=== PATIENT | female | born 1980 | race Caucasian/White ===

== ENCOUNTER 2020-03-25 16:24 | Emergency (ER) | payer OTHER, SELFPAY ==
--- NOTE | ~2020-03-25 | US_ITS ---
EXAMINATION: US OB <= 14 weeks fetus DATE: 03/25/2020 18:12 INDICATION: Vaginal bleeding during first trimester TECHNIQUE: Real-time pelvic transabdominal and transvaginal ultrasound was performed. COMPARISON: None. FINDINGS: The uterus measures 8.5 x 4.8 x 6.8 cm. There is an intrauterine gestational sac.There is a 1.7 x 0.5 x 1.1 cm hypoechoic area adjacent to the gestational sac. A yolk sac is identified. heart motion is identified measuring 126 beats per minute (bpm) by M-mode Doppler. The crown r ump length measures 8 mm , which correlates with an estimated gestational age of 6 weeks and 5 day(s) (+/-) 4 day(s). The right ovary measures 3.0 x 2.1 x 2.1 cm. The left ovary measures 3.5 x 2.2 x 2.0 cm. There is nor mal vascular flow in the ovaries. There is no free fluid in the pelvis. IMPRESSION: 1. Live intrauterine with an estimated gestational age of 6 weeks and 5 day(s) (+/-) 4 day( s) and an estimated delivery date of 11/13/2020. 2. Small subchorionic hemorrhage. Reviewed, dictated and finalized at location A. IMPRESSION: 1. Live intrauterine with an estimated gestational age of 6 weeks and 5 day(s) (+/-) 4 day(s) and an estimated delivery date of 11/13/2020. 2. Small subchorionic hemorrhage.
[2020-03-25 16:50] VITALS: BP 132/81; PULSE 99; RESP 16; TEMP 37.1; O2SAT 100
[2020-03-25 17:06] LABS: Basophils Percent Auto 0.3 % (0.2-1.2); Eosinophils Absolute Auto 0.2 K/mm3 (0-0.3); Eosinophils Percent Auto 2.3 % (0-4.4); Hematocrit 42.7 % (37.0-47.0); Hemoglobin 14.7 g/dL (12.0-15.0); Immature Granulocyte Absolute 0.04 K/mm3 (0.00-0.031); Immature Granulocyte Percent A 0.5 % (0-0.5); Lymphocytes Absolute Auto 1.46 K/mm3 (0.9-3.2); Lymphocytes Percent Auto 16.5 % (18.3-44.2); Mean Corpuscular HGB Conc 34.4 g/dl (32-36); Mean Corpuscular Hemoglobin 29.8 pg (26-34); Mean Corpuscular Volume 86.4 fl (80-100); Mean Platelet Volume 11.7 fl (7.4-10.4); Monocytes Absolute Auto 0.6 K/mm3 (0.1-0.6); Monocytes Percent Auto 6.3 % (2.6-8.5); Neutrophils Absolute Auto 6.6 K/mm3 (1.3-6.7); Neutrophils Percent Auto 74.1 % (45.5-73.1); Platelet Count Result 187 k/mm3 (150-375); Red Blood Count 4.94 M/mm3 (4.2-5.4); Red Cell Distribution Width 13.4 % (11.5-14.5); White Blood Count 8.9 K/mm3 (4.5-10.0)
--- NOTE | 2020-03-25 17:22 | PC.NURSE ---
this RN was unable to obtain heart tones with monitor
--- NOTE | 2020-03-25 17:29 | ED.PREGNANCY ---
HPI - General Chief complaint: Vaginal Bleeding Stated complaint: with cramping and bleeding Time Seen by Provider: 03/25/20 17:11 Source: patient Mode of arrival: ambulatory Limitations: no limitations History of Present Illness HPI Narrative: This patient is a 39 year old female who presents for evaluation of vaginal bleeding during . PAtient states this is her first and her last menstrual cycle was 02/09/20. She reports she has had intermittent vaginal spotting over the past week. Today she developed bright red vaginal bleeding and lower abdominal cramping. She reports her bleeding has decreased now. She denies lightheadedness or dizziness. She schedule to see OB on Friday for possible ultrasound. Her OB is Heather Londono MD Complaint: vaginal bleeding Related Data Allergies Allergy/AdvReac Type Severity Reaction Status Date / Time No Known Allergies Allergy Unknown Verified 03/25/20 17:11 Review of Systems Review of Systems: All systems reviewed & are unremarkable except as noted in HPI and below Genitourinary: Genitourinary: Reports abnormal vaginal bleeding and Reports pelvic pain PMFSH Past Medical History Medical History (Updated 03/25/20 @ 18:39 by Yoselyn Salinas MD) Patient denies medical problems Family History Family History (Updated 04/28/14 @ 07:13 by DOCTOR UNKNOWN) Father Family history of elevated blood lipids Other Carcinoma of colon Family history of malignant neoplasm Hypertension Social History Social History Smoking status: Never smoker Alcohol intake: current Comments surgical history of VISUAL STYLIST shunt Exam Narrative: Exam Narrative: GENERAL: Well-appearing, well-nourished, and in no acute distress. HEAD: Normocephalic, atraumatic EYES: PERRLA and EOMI, conjunctiva clear without discharge THROAT:Mucous membranes moist, Oropharynx normal without erythema, exudate, peritonsillar swelling or fluctuance NECK: Supple, RESPIRATORY: No respiratory distress, Airway patent, Respirations non-labored, Clear to auscultation without rales, rhonchi or wheeze HEART: Regular rate and rhythm. No murmur heard. Normal peripheral pulses. ABDOMEN: Soft, nontender, nondistended, normal active bowel sounds. No masses. No rebound or guarding, No organomegaly. EXTREMITIES: No edema, normal strength with full range of motion. SKIN: Warm, dry, normal color without rash NEURO: Alert and oriented x3. CN 2-12 grossly intact. No focal deficits. PSYCH: Normal mood and affect. : Speculum Exam - Vagina: No vaginal bleeding Speculum Exam - Cervix: Cervical os closed Course Reevaluation(s) Reevaluation #1: I have discussed with patient Ultrasound results. she has an appointment with OB on Friday. She understands she will need to be on pelvic rest Date: 03/25/20 Time: 18:37 Vital Signs Vital signs: Vital Signs Temperature 98.7 F 03/25/20 16:50 Pulse Rate 99 03/25/20 16:50 Respiratory Rate 16 03/25/20 16:50 Blood Pressure 132/81 03/25/20 16:50 Pulse Oximetry 100 03/25/20 16:50 Temperature 98.7 F 03/25/20 16:50 Pulse Rate 87 03/25/20 17:45 Respiratory Rate 16 03/25/20 16:50 Blood Pressure 117/75 03/25/20 17:45 Pulse Oximetry 100 03/25/20 16:50 MDM - OB/Uterine Contractions Lab Data Attestation: I reviewed the patient's lab results. Result diagrams: 03/25/20 16:58 Labs: Lab Results 03/25/20 03/25/20 03/25/20 Range/Units 16:58 16:59 16:59 WBC 8.9 (4.5-10.0) K/mm3 RBC 4.94 (4.2-5.4) M/mm3 Hgb 14.7 (12.0-15.0) g/dL Hct 42.7 (37.0-47.0) % MCV 86.4 (80-100) fl MCH 29.8 (26-34) pg MCHC 34.4 (32-36) g/dl RDW 13.4 (11.5-14.5) % Plt Count 187 (150-375) k/mm3 MPV 11.7 H (7.4-10.4) fl Immature Gran % (Auto) 0.5 (0-0.5) % Neut % (Auto) 74.1 H (45.5-73.1) % Lymph % (Auto) 16.5 L (18.3-44.2) % [place] % (Auto) 6.3 (2.6-8.5)
[2020-03-25 17:43] VITALS: BP 110/82; PULSE 100
[2020-03-25 17:44] VITALS: BP 116/77; PULSE 83
[2020-03-25 17:45] VITALS: BP 117/75; PULSE 87
== END 2020-03-25 18:49 | disposition home or self-care (01) ==
PROVIDERS: Emergency Medicine; Emergency Provider General Practice
DX: O46.8X1 Other antepartum hemorrhage, first trimester (principal); Z3A.01 Less than 8 weeks gestation of pregnancy
CPT/HCPCS: 36415; 76801; 84702; 85025; 85461; 99284

== ENCOUNTER 2020-04-17 07:52 | Outpatient (RCR) | payer OTHER, SELFPAY | END 2020-07-13 23:59 | disposition home or self-care (01) | LOC: ANHLAB 07:52 | PROVIDERS: Visit Provider Obstetrics & Gynecology Gynecology | DX: O26.851 Spotting complicating pregnancy, first trimester (principal); Z3A.00 Weeks of gestation of pregnancy not specified | CPT/HCPCS: 36415; 84702; 85461 ==

== ENCOUNTER 2020-04-17 10:12 | Outpatient (CLI) | payer OTHER, SELFPAY ==
--- NOTE | ~2020-04-17 | US_ITS ---
EXAMINATION: US OB <= 14 weeks fetus EXAM DATE: 04/17/2020 11:00 INDICATION: , vaginal bleeding. 1st trimester. TECHNIQUE: Pelvic obstetrical transabdominal sonogram was performed by a technologist. There are mu ltiple grayscale and Doppler images available for interpretation. Comparison is made to prior examina tion from 03/25/2020. FINDINGS: Uterus measures 11.9 x 4.8 x 6.8 cm. There is intrauterine gestation sac. pole with heart rate confirmed at 165 beats per minute. The 3.3 mm crown-rump length corresponds to estimated gestational age by ultrasound of 10 weeks 2 days, estimated date of confinement 11/11/2020. Yolk sac is identified. There is thin small hypoechoic subchorionic region measuring 4 mm in thickness by a bout 2 cm in diameter, probably small subchorionic hemorrhage. The ovaries are unremarkable. IMPRESSION: Live intrauterine gestation, probable small subchorionic hemorrhage. Reviewed, dictated and finalized at location B. IMPRESSION: Live intrauterine gestation, probable small subchorionic hemorrhage .
== END 2020-04-17 10:13 | disposition home or self-care (01) ==
LOC: ANHIMG 10:20
PROVIDERS: Visit Provider Nurse Practitioner
DX: O26.851 Spotting complicating pregnancy, first trimester (principal); O20.0 Threatened abortion; Z3A.10 10 weeks gestation of pregnancy
CPT/HCPCS: 76801

== ENCOUNTER → 2020-05-16 08:26 | Outpatient (CLI) | payer OTHER, SELFPAY ==
--- NOTE | ~2020-05-16 | US_ITS ---
US OB limited 05/16/2020 08:49 Indication: Follow-up subchorionic hemorrhage Procedure: High-resolution ultrasound of the breasts Comparison: 04/17/2020 Findings: There is a single living intrauterine in variable presentation. heart rate is 143 BPM. Placenta is posterior without previa. There is no evidence for subchorionic hemorrhage on the current examination. Amniotic fluid is subjectively normal. Impression: 1: Single living intrauterine in variable presentation. 2: Interval resolution of subchorionic hemorrhage. Reviewed, dictated and finalized at location B. Impression: 1: Single living intrauterine in variable presentation. 2: Interval resolution of subchorionic hemorrhage.
== END ==
PROVIDERS: Visit Provider Nurse Practitioner
DX: O36.8910 Maternal care for other specified fetal problems, first trimester, not applicable or unspecified (principal); Z3A.00 Weeks of gestation of pregnancy not specified
CPT/HCPCS: 76815

== ENCOUNTER 2020-11-08 17:18 | Inpatient (IN) | payer OTHER, SELFPAY ==
--- NOTE | 2020-10-23 14:13 | PC.NURSE ---
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
[2020-11-08] VITALS (12 sets, daily range): BP systolic 105–136; BP diastolic 67–87; PULSE 86–97; TEMP 36.4; BMI 29.3
--- NOTE | 2020-11-08 18:15 | LDADM ---
This patient, Roseann Holguin, was admitted to Labor/Delivery/Recovery 108 on 11/08/20 at 17:18. Plans for labor, pain management and were discussed with patient. Patient/family oriented to hospital policies and general routines including ID bracelet, bed and alarms, visiting hours, pain management, procedures, bathroom and other care routines, personal items, smoking policy, room service/diet and guest tray routines, security routines, call light, and visiting hours. Patient/Family are encouraged to report perceived risks to care and to ask questions if they do not understand what they are told or what they should do. See OBIX for further documentation.
[2020-11-08 18:18] LABS: Basophils Percent Auto 0.1 % (0.2-1.2); Eosinophils Absolute Auto 0.1 K/mm3 (0-0.3); Eosinophils Percent Auto 1.3 % (0-4.4); Hematocrit 36.1 % (37.0-47.0); Hemoglobin 12.3 g/dL (12.0-15.0); Immature Granulocyte Absolute 0.07 K/mm3 (0.00-0.031); Immature Granulocyte Percent A 0.8 % (0-0.5); Lymphocytes Percent Auto 18.3 % (18.3-44.2); Mean Corpuscular HGB Conc 34.1 g/dl (32-36); Mean Corpuscular Hemoglobin 29.9 pg (26-34); Mean Corpuscular Volume 87.6 fl (80-100); Mean Platelet Volume 11.6 fl (7.4-10.4); Monocytes Absolute Auto 0.8 K/mm3 (0.1-0.6); Monocytes Percent Auto 8.9 % (2.6-8.5); Neutrophils Absolute Auto 6.2 K/mm3 (1.3-6.7); Neutrophils Percent Auto 70.6 % (45.5-73.1); Platelet Count Result 153 k/mm3 (150-375); Red Blood Count 4.12 M/mm3 (4.2-5.4); Red Cell Distribution Width 14.2 % (11.5-14.5); White Blood Count 8.7 K/mm3 (4.5-10.0)
[2020-11-08] MEDS: DINOPROSTONE 10 MG VAG INSERT VAGINAL (18:23)
[2020-11-09] VITALS (138 sets, daily range): BP systolic 93–145; BP diastolic 46–113; PULSE 78–132; TEMP 36.6–37.9; O2SAT 92–100
[2020-11-09] MEDS: LACTATED RINGERS 1,000 ML 125 ML IV CONT ×4 (06:58→19:00)
[2020-11-09 07:04] LABS: Glucose Point of Care 86 (65-105)
[2020-11-09] MEDS: OXYTOCIN 30 UNITS/NS 500 ML 30 UNITS/500 ML BAG IV CONT (07:12)
--- NOTE | 2020-11-09 07:57 | WPDOBADMIT ---
Obstetrics - Admit Note Admission Note: record reviewed. No pertinent additions to the history and/or any subsequent changes in the physical findings that are not consistent with the expected course of the were found. Additions to the history and/or subsequent changes in the physical findings follow. None. Here for MIL. Cervadil last pm. Now 1-/-2 AROM with mec fluid. FHTs reactive
[2020-11-09 07:59] LABS: Rapid Plasma Reagin Non-Reactive (NonReactive)
--- NOTE | 2020-11-09 09:02 | WPDANESEPP ---
Anes - Eval Pre Procedure Procedure: Labor Epidural Date/Time: 11/09/20 09:02 Pre Op Diagnosis: Induction of Labor Patient Data Age: 40 Gender: F Height: 1.63 m Weight: 77.5 kg Last Vital Signs Temp 36.9 C 11/09/20 08:40 Pulse 86 11/09/20 08:17 BP 121/93 H 11/09/20 08:17 Allergies Allergy/AdvReac Type Severity Reaction Status Date / Time No Known Allergies Allergy Unknown Verified 11/08/20 17:53 Home Medications Medication Instructions Recorded Confirmed Type cetirizine-pseudoephedrine 1 tablet PO Q12H PRN #12 tablet 07/15/19 11/08/20 Rx [Zyrtec-D] codeine-guaifenesin [Virtussin AC] 5 ml PO Q6H PRN #120 ml 07/15/19 11/08/20 Rx polymyxin B sulf-trimethoprim 1 drop EACH EYE Q3H #10 ml 07/15/19 11/08/20 Rx [Polytrim] aspirin 81 mg PO HS 11/08/20 11/08/20 History levothyroxine 25 mcg PO Q48H 11/08/20 11/08/20 History levothyroxine 50 mcg PO Q48H 11/08/20 11/08/20 History Laboratory Tests 11/08/20 11/08/20 11/08/20 18:07 18:07 18:07 WBC 8.7 K/mm3 K/mm3 (4.5-10.0) RBC 4.12 M/mm3 L M/mm3 (4.2-5.4) Hgb 12.3 g/dL g/dL (12.0-15.0) Hct 36.1 % L % (37.0-47.0) MCV 87.6 fl fl (80-100) MCH 29.9 pg pg (26-34) MCHC 34.1 g/dl g/dl (32-36) RDW 14.2 % % (11.5-14.5) Plt Count 153 k/mm3 k/mm3 (150-375) MPV 11.6 fl H fl (7.4-10.4) Immature Gran % (Auto) 0.8 % H % (0-0.5) Neut % (Auto) 70.6 % % (45.5-73.1) Lymph % (Auto) 18.3 % % (18.3-44.2) [place] % (Auto) 8.9 % H % (2.6-8.5) Eos % (Auto) 1.3 % % (0-4.4) Baso % (Auto) 0.1 % L % (0.2-1.2) Lymph # (Auto) 1.60 K/mm3 K/mm3 (0.9-3.2) [place] # (Auto) 0.8 K/mm3 H K/mm3 (0.1-0.6) Eos # (Auto) 0.1 K/mm3 K/mm3 (0-0.3) Baso # (Auto) 0.0 K/mm3 K/mm3 (0.0-0.1) Abs Immat Gran (auto) 0.07 K/mm3 H K/mm3 (0.00-0.031) Absolute Neuts (auto) 6.2 K/mm3 K/mm3 (1.3-6.7) Absolute Nucleated RBC 0.0 K/mm3 K/mm3 (0.0-0.012) Nucleated RBC % 0.0 % % (0.0-0.2) POC Capillary Glucose RPR Non-reactive (NonReactive) Blood Type A Positive Antibody Screen Negative 11/09/20 06:58 WBC RBC Hgb Hct MCV MCH MCHC RDW Plt Count MPV Immature Gran % (Auto) Neut % (Auto) Lymph % (Auto) [place] % (Auto) Eos % (Auto) Baso % (Auto) Lymph # (Auto) [place] # (Auto) Eos # (Auto) Baso # (Auto) Abs Immat Gran (auto) Absolute Neuts (auto) Absolute Nucleated RBC Nucleated RBC % POC Capillary Glucose 86 mg/dl mg/dl (65-105) RPR Blood Type Antibody Screen Patient hx anesthesia problems: none Family hx anesthesia problems: none PMFSH Past Medical History Medical History (Updated 11/09/20 @ 09:06 by Kerry Mae CRNA) Anxiety Gestational diabetes Migraine Patient denies medical problems Surgical History Surgical History (Updated 11/09/20 @ 09:06 by Kerry Mae CRNA) POWER SUPPLY ENGINEER (ventriculoperitoneal) shunt status Family History Family History Father Family history of elevated blood lipids Pancreatitis Grandparent Hypertension Carcinoma of colon Cancer Renal failure Pacemaker Heart disease Diabetes mellitus Social History Social History Smoking status: Never smoker Alcohol intake: current Substance use: never Spiritual care concerns: No Exam Day of Procedure 11/09/20 09:02 Patient weight: normal Heart: regular rate and rhythm Lungs: normal air movement Airway: Mallampati scale class II Neurological: alert and oriented Other fi
[2020-11-09 11:06] LABS: Glucose Point of Care 87 (65-105)
[2020-11-09 13:56] LABS: Glucose Point of Care 68 (65-105)
[2020-11-09 18:18] LABS: Glucose Point of Care 57 (65-105)
[2020-11-09 19:21] LABS: Glucose Point of Care 89 (65-105)
[2020-11-09 22:33] LABS: Glucose Point of Care 78 (65-105)
[2020-11-09] MEDS: AMPICILLIN 2 GM/NS 100 ML 2 GM/100 ML BAG IVPB (23:12)
[2020-11-10] VITALS (208 sets, daily range): BP systolic 97–153; BP diastolic 47–99; PULSE 92–135; RESP 13–16; TEMP 36.3–37.7; O2SAT 94–100
[2020-11-10] MEDS: SODIUM CHLORIDE 0.9% IV 300 ML 600 ML I-UTERINE (00:59)
[2020-11-10 02:37] LABS: Glucose Point of Care 78 (65-105)
[2020-11-10] MEDS: AMPICILLIN 1 GM/NS 50 ML 1 GM/50 ML BAG IVPB ×2 (05:04→09:07)
[2020-11-10 06:28] LABS: Glucose Point of Care 80 (65-105)
[2020-11-10] MEDS: LACTATED RINGERS 1,000 ML 125 ML IV CONT (08:07)
[2020-11-10 09:28] LABS: Glucose Point of Care 79 (65-105)
[2020-11-10 11:26] LABS: Estimated CRCL calculation 83 ml/min; Estimated Glomerular Filt Rate > 60
--- NOTE | 2020-11-10 12:36 | PM.IMHP ---
H&P: HPI History of Present Illness Date/Time: 11/10/20 12:36 Chief Complaint: failure to progress Narrative: 40 yo G1 at 39 wk EGA here for MIL. Patient initially with cervadil and then AROM and Pitocin. Patient with minimal change in 12 hours and no change in 4 hours. She is 5 cm and cervix is starting to get puffy. complicated by AMA and GDMA1. Level 2 u/s and NIPT normal. Sugars have been well controlled with diet. labs: A+; RPR -; HIV-; HBSAg -; GBS-. Review of Systems Review of Systems: Narrative: not repeated day of surgery; patient states no changes in status PMFSH Past Medical History Medical History (Updated 11/10/20 @ 12:42 by Vashti Ward MD) Adult hypothyroidism Anxiety Gestational diabetes Hydrocephalus V-P shunt 1980 Migraine Urinary tract disease had bilateral urinary tract dilation as a child Surgical History Surgical History (Updated 11/09/20 @ 09:06 by Kerry Mae CRNA) STEM ROLLER (ventriculoperitoneal) shunt status Family History Family History Father Family history of elevated blood lipids Pancreatitis Grandparent Hypertension Carcinoma of colon Cancer Renal failure Pacemaker Heart disease Diabetes mellitus Social History Social History Smoking status: Never smoker Alcohol intake: current Substance use: never Spiritual care concerns: No Meds Home Medications and Allergies Home Medications Medication Instructions Recorded Confirmed Type cetirizine-pseudoephedrine 1 tablet PO Q12H PRN #12 tablet 07/15/19 11/08/20 Rx [Zyrtec-D] codeine-guaifenesin [Virtussin AC] 5 ml PO Q6H PRN #120 ml 07/15/19 11/08/20 Rx polymyxin B sulf-trimethoprim 1 drop EACH EYE Q3H #10 ml 07/15/19 11/08/20 Rx [Polytrim] aspirin 81 mg PO HS 11/08/20 11/08/20 History levothyroxine 25 mcg PO Q48H 11/08/20 11/08/20 History levothyroxine 50 mcg PO Q48H 11/08/20 11/08/20 History Allergies Allergy/AdvReac Type Severity Reaction Status Date / Time No Known Allergies Allergy Unknown Verified 11/08/20 17:53 Vital Signs Vital Signs - 24 hr 11/09/20 12:37 11/09/20 13:00 11/09/20 13:30 Temperature 98.8 F Pulse Rate 92 106 H 90 Blood Pressure 122/77 130/89 130/84 Pulse Oximetry 11/09/20 13:40 11/09/20 14:00 11/09/20 14:11 Temperature 98.7 F 98.3 F Pulse Rate 88 Blood Pressure 113/75 Pulse Oximetry 11/09/20 14:31 11/09/20 15:06 11/09/20 15:30 Temperature Pulse Rate 78 99 91 Blood Pressure 121/83 125/84 132/90 Pulse Oximetry 11/09/20 16:35 11/09/20 16:40 11/09/20 16:45 Temperature Pulse Rate 92 Blood Pressure 132/84 Pulse Oximetry 100 100 98 11/09/20 16:46 11/09/20 16:48 11/09/20 16:50 Temperature Pulse Rate 103 H 99 102 H Blood Pressure 128/91 H 135/96 H 135/113 H Pulse Oximetry 98 11/09/20 16:53 11/09/20 16:55 11/09/20 16:58 Temperature Pulse Rate 90 91 87 Blood Pressure 116/75 117/79 116/72 Pulse Oximetry 99 11/09/20 17:00 11/09/20 17:03 11/09/20 17:05 Temperature Pulse Rate 88 82 85 Blood Pressure 118/75 114/76 117/69 Pulse Oximetry 100 99 11/09/20 17:08 11/09/20 17:10 11/09/20 17:13 Temperature Pulse Rate 87 86 85 Blood Pressure 116/72 114/73 115/72 Pulse Oximetry 100 11/09/20 17:15 11/09/20 17:18 11/09/20 17:20 Temperature Pulse Rate 82 90 87 Blood Pressure 113/78 115/74 111/76 Pulse Oximetry 100 100 11/09/20 17:22 11/09/20 17:25 11/09/20 17:28 Temperature Pulse Rate 88 80 110 H Blood Pressure 119/82 117/78 99/72 L Pulse Oximetry 100 11/09/20 17:30 11/09/20 17:35 11/09/20 17:40 Temperature 98.1 F Pulse Rate 87 Blood Pressure 109/67 Pulse Oximetry 100 100 100 11/09/20 17:45 11/09/20 17:50 11/09/20 17:55 Temperature Pulse Rate 85 Blood Pressure 103/63 Pulse Oximetry 99 99 98
--- NOTE | 2020-11-10 12:43 | WPDHPUPDATE1 ---
History and Physical Update Update Date/Time: 11/10/20 12:43 History and Physical has been reviewed, including an updated exam of the patient. There are NO changes in the patient's condition. Risks, benefits, and alternatives have been discussed and questions answered. Patient agrees to proceed with procedure.
[2020-11-10 12:45] LABS: Glucose Point of Care 65 (65-105)
--- NOTE | 2020-11-10 13:30 | PM.PROC ---
Procedure Note - Detailed Date of procedure: 11/10/20 Pre-op diagnosis: Induction of Labor IUP 39 wks GDMA1 Failure to progress Post-op diagnosis: same Procedure performed: LTCS Description of procedure: The patient was taken to the operating room and under epidural anesthesia in the dorsal supine position with a leftward tilt. The patient was prepped and draped in usual sterile fashion. Once anesthesia was deemed adequate the skin tag at the right upper mons was excised using a Bovie cautery. The skin incision was made with a scalpel and carried down to the underlying layer of fascia nicked in the midline. The subcutaneous tissues were made hemostatic using Bovie cautery. The fascial incision is extended laterally using Loera scissors. The fascial edges were grasped with Ochsner is and dissected off using sharp and blunt dissection. The rectus muscles are in the midline and the peritoneum was tented and entered with Metzenbaum scissors. The peritoneal incision is extended with blunt traction. The bladder blade is placed. The lower uterine segment was incised with a transverse fashion with the scalpel. The incision is extended laterally using blunt traction. The 's head was brought up into the incision and delivered while the assistant merchandiser applied fundal pressure. The nuchal cord x1 was reduced and the remainder of the infant was delivered. The placenta is removed using manual traction and membranes were removed using a dry sponge and the uterus is cleared of all clots and debris. The uterine incision is closed using 0 Monocryl in a running locked fashion. Same suture was used to imbricate. Good hemostasis is noted. The cul-de-sac and gutters are irrigated and sectioned using the pool suctioned only without a sponge. The fascial incision was closed using 0 Vicryl in a running fashion. The subcutaneous tissues were irrigated and noted to be hemostatic. The skin is closed using 4 0 Vicryl in a subcuticular fashion. Dermaflex was placed over the incision. Sponge, instrument, and needles are correct per the OR staff. Anesthesia: epidural Surgeon: Vashti Ward MD Estimated blood loss (mL): 200 Drains: Yes (christy) Packing: No Pathology: yes (placenta; mons skin tag) Complications: No immediate complications Condition: stable Disposition: floor Findings: male 9/9 Apgars weighing 9#5oz; nuchal cord x 1; head asynclitic ; normal appearing tubes, ovaries, and uterus
--- NOTE | 2020-11-10 13:37 | P.DS_ITS ---
DS: Admitting Diagnosis Admitting Diagnosis Admitting Diagnosis: IUP 39 weeks MIL GDMA2 DS: Discharge Diagnosis Discharge Diagnosis (1) Failure to progress in labor: Code(s): O62.2 - Other uterine inertia Status: Acute (2) 39 weeks gestation of : Code(s): Z3A.39 - 39 weeks gestation of Status: Acute (3) GDM, class A1: Code(s): O24.410 - Gestational diabetes mellitus in , diet controlled Status: Acute (4) delivery delivered: Code(s): O82 - Encounter for delivery without indication Status: Acute OB - DS: Summary OB Procedures : NST and Ultrasound OB Procedures Intrapartum: low cervical, transverse OB Procedures: : None Peripartum Data Infant Delivery Method: Section Laceration Description: None complications: none Status at Discharge Functional status at discharge: independent ambulation Overall status at discharge: patient is progressing back to baseline Time Spent with Patient Time attestation: Total time spent providing and/or coordinating discharge services: DS: Data Data Completed and Pending Labs on day of discharge: Labs from last 24 hours 11/10/20 11/10/20 11/10/20 12:02 11:07 09:23 Creatinine 0.80 Estim Creat Clear Calc 83 Estimated GFR > 60 POC Capillary Glucose 65 79 11/10/20 11/10/20 11/09/20 06:13 02:29 22:21 Creatinine Estim Creat Clear Calc Estimated GFR POC Capillary Glucose 80 78 78 11/09/20 11/09/20 11/09/20 19:18 18:11 13:51 Creatinine Estim Creat Clear Calc Estimated GFR POC Capillary Glucose 89 57 L* 68 Discharge Plan Discharge Attending physician on discharge: Vashti Ward Discharging Clinician: Vashti Ward Anticipated Discharge Date/Time: 11/13/20 13:38 Patient Disposition: Home, Self-Care Activity: may shower, may drive after 2 weeks and pelvic rest Diet: regular Patient Instructions: Antibiotic Form Stand Alone Forms: General Discharge Information Follow-up/Referrals: Vashti Ward MD [Physician] - 1 Week Discharge Medications: New hydrocodone-acetaminophen 5-325 mg Tablet 1 tablet PO Q3H PRN (Reason: Moderate Pain (4-6)) Qty: 20 RF: 0 Continued polymyxin B sulf-trimethoprim [Polytrim] 10,000 unit- 1 mg/mL drops 1 drop EACH EYE Q3H Qty: 10 RF: 0 cetirizine-pseudoephedrine [Zyrtec-D] 5-120 mg tablet extended release 12 hr 1 tablet PO Q12H PRN (Reason: nasal congestion) Qty: 12 RF: 0 levothyroxine 25 mcg Tablet 25 mcg PO Q48H RF: 0 levothyroxine 50 mcg Capsule 50 mcg PO Q48H RF: 0 Discontinued codeine-guaifenesin [Virtussin AC] 10-100 mg/5 mL liquid 5 ml PO Q6H PRN (Reason: cough) Qty: 120 RF: 0 aspirin 81 mg Tablet 81 mg PO HS RF: 0 Date of admission: 11/08/20 17:18 Primary Care Provider: PHYSICIAN,MOTTLE LAY UP OPERATOR Admitting Provider: Vashti Ward Attending physician on admission: Vashti Ward Condition: Stable
[2020-11-10] MEDS: OXYTOCIN 30 UNITS/NS 500 ML 30 UNITS/500 ML BAG 125 UNITS IV CONT (14:25)
[2020-11-10] MEDS: METHYLERGONOVINE MALEATE 0.2 MG/ML VIAL IM (15:51)
--- NOTE | 2020-11-10 18:31 | OBPPTRN ---
Patient transferred to post room #285 via stretcher. Support person present. Oriented to unit, room, information board, rooming in, admission packet and security measures. Patient verbalizes understanding.
[2020-11-10] MEDS: DEXTROSE 5%/0.45% SOD CHL 1,000 ML 125 ML IV CONT (19:00)
[2020-11-10] MEDS: KETOROLAC 30 MG/ML VIAL (*BKC) IV PUSH (19:16)
[2020-11-11] MEDS: KETOROLAC 30 MG/ML VIAL (*BKC) IV PUSH (03:31)
[2020-11-11] MEDS: KCL 20 MEQ/D5/0.45% SOD CHL 1,000 ML 125 ML IV CONT (03:31)
[2020-11-11 04:30] VITALS: BP 111/74; PULSE 101; RESP 14; TEMP 38.1; O2SAT 99
[2020-11-11 05:27] LABS: Basophils Percent Auto 0.2 % (0.2-1.2); Eosinophils Absolute Auto 0.1 K/mm3 (0-0.3); Eosinophils Percent Auto 0.7 % (0-4.4); Hematocrit 29.5 % (37.0-47.0); Hemoglobin 10.1 g/dL (12.0-15.0); Immature Granulocyte Absolute 0.08 K/mm3 (0.00-0.031); Immature Granulocyte Percent A 0.7 % (0-0.5); Lymphocytes Percent Auto 9.9 % (18.3-44.2); Mean Corpuscular HGB Conc 34.2 g/dl (32-36); Mean Corpuscular Hemoglobin 30.5 pg (26-34); Mean Corpuscular Volume 89.1 fl (80-100); Monocytes Absolute Auto 0.7 K/mm3 (0.1-0.6); Monocytes Percent Auto 5.8 % (2.6-8.5); Neutrophils Percent Auto 82.7 % (45.5-73.1); Platelet Count Result 129 k/mm3 (150-375); Red Blood Count 3.31 M/mm3 (4.2-5.4); Red Cell Distribution Width 14.6 % (11.5-14.5); White Blood Count 12.1 K/mm3 (4.5-10.0)
[2020-11-11] MEDS: LEVOTHYROXINE SODIUM 50 MCG TABLET PO (06:52)
[2020-11-11 09:00] VITALS: BP 115/84; PULSE 112; RESP 18; TEMP 37.3
--- NOTE | 2020-11-11 10:19 | WPDANLDPN2 ---
Anes-Prog Note L&D Date/Time: 11/11/20 10:19 Comfortable throughout: labor and delivery Neuraxial method: epidural Epidural/Spinal procedure site: clean & non-tender Neuro status: Neuro function grossly intact. Cardiovascular status: normal Respiratory status: normal Airway patency: baseline Mental status: baseline Post-Op hydration status: normal Vital Signs: Last Vital Signs Temp 38.1 C H 11/11/20 04:30 Pulse 101 H 11/11/20 04:30 Resp 14 11/11/20 04:30 BP 111/74 11/11/20 04:30 Pulse Ox 99 11/11/20 04:30 Pain score (VAS): no complaints I/O: Intake & Output 11/10/20 11/11/20 11/11/20 23:59 07:59 15:59 Output Total 1071 475 Balance -1071 -475 Post-procedural complaints: none Patient feedback: Patient satisfied with anesthetic care.
[2020-11-11] MEDS: MULTIVIT/MIN/PREN/FOL AC/IRON TABLET 1 TAB PO (10:41)
[2020-11-11] MEDS: IBUPROFEN 600 MG TABLET PO ×3 (10:42→23:53)
[2020-11-11] MEDS: HYDROcodone/acetaminophen (*CRX) 5-325 MG TABLET 1 TAB PO ×3 (10:42→23:53)
[2020-11-11] MEDS: DOCUSATE SODIUM 100 MG CAPSULE PO ×2 (10:42→16:45)
--- NOTE | 2020-11-11 11:49 | P.PNOB_ITS ---
OB - PN: Subj Subjective Date/time seen: 11/11/20 11:49 Patient comments: no complaints and pain well controlled baby status: doing well OB - PN: Obj Data Labs CBC & Chem 7: 11/11/20 03:45 11/10/20 11:07 Labs: Laboratory Results - last 24 hr 11/10/20 11/11/20 12:02 03:45 WBC 12.1 H RBC 3.31 L Hgb 10.1 L Hct 29.5 L MCV 89.1 MCH 30.5 MCHC 34.2 RDW 14.6 H Plt Count 129 L MPV 12.0 H Immature Gran % (Auto) 0.7 H Neut % (Auto) 82.7 H Lymph % (Auto) 9.9 L [place] % (Auto) 5.8 Eos % (Auto) 0.7 Baso % (Auto) 0.2 Lymph # (Auto) 1.20 [place] # (Auto) 0.7 H Eos # (Auto) 0.1 Baso # (Auto) 0.0 Abs Immat Gran (auto) 0.08 H Absolute Neuts (auto) 10.0 H Absolute Nucleated RBC 0.0 Nucleated RBC % 0.0 POC Capillary Glucose 65 OB - PN A/P Plan day: 1 Plan: routine care Time Spent With Patient Time: Total time spent is greater than 50% in coordination of care (as docume nted) at patient's floor/unit and/or counseling patient: Exam Narrative: Exam Narrative: inc c/d/i : Bimanual exam- vagina & uterus: other (Uterus firm, nt @U)
[2020-11-11 20:10] VITALS: BP 122/77; PULSE 101; RESP 14; TEMP 36.4; O2SAT 98
[2020-11-11] MEDS: HYDROcodone/acetaminophen (*CRX) 10-325 MG TABLET 1 TAB PO (20:18)
--- NOTE | 2020-11-12 04:06 | PC.NURSE ---
Daylight Savings Time 11/12/20 0159 For Daylight Savings Time Beginning in the Spring - Clocks are moved ahead. For [facility], the time of change occurs at 0200 hrs. Time is taken from the ms sql server developer. This entry on the patient's chart recognizes the change in time reflected during documentation. Example: 2 entries for vital signs may be charted for 0200 hrs.
[2020-11-12] MEDS: HYDROcodone/acetaminophen (*CRX) 10-325 MG TABLET 1 TAB PO ×2 (08:29→12:59)
[2020-11-12] MEDS: LEVOTHYROXINE SODIUM 25 MCG TABLET PO (08:29)
[2020-11-12] MEDS: DOCUSATE SODIUM 100 MG CAPSULE PO ×2 (08:29→16:31)
[2020-11-12] MEDS: MULTIVIT/MIN/PREN/FOL AC/IRON TABLET 1 TAB PO (08:29)
[2020-11-12 08:30] VITALS: BP 120/80; PULSE 99; RESP 20; TEMP 36.3
[2020-11-12] MEDS: IBUPROFEN 600 MG TABLET PO ×2 (08:30→16:32)
[2020-11-12] MEDS: HYDROcodone/acetaminophen (*CRX) 5-325 MG TABLET 1 TAB PO ×2 (16:31→20:25)
--- NOTE | 2020-11-12 17:00 | PC.NURSE ---
Patient viewed the discharge video Mother & Baby Care, The First Two Weeks . Patient was given the opportunity and encouraged to ask questions. Patient verbalized understanding of information shared and has been given the mother/baby guide for home reference.
--- NOTE | 2020-11-12 17:31 | PM.OBPNVD ---
OB - PN: Subj Subjective Date/time seen: 11/12/20 17:31 Patient comments: no complaints and pain well controlled baby status: doing well OB - PN: Obj Data Labs CBC & Chem 7: 11/11/20 03:45 11/10/20 11:07 OB - PN A/P Assessment and Plan (1) delivery delivered: Code(s): O82 - Encounter for delivery without indication Status: Acute Plan day: 2 Plan: routine care Time Spent With Patient Time: Total time spent is greater than 50% in coordination of care (as documented) at patient's floor/unit and/or counseling patient: Exam Narrative: Exam Narrative: inc c/d/i : Bimanual exam- vagina & uterus: other (Uterus firm, nt @U)
[2020-11-12 19:34] VITALS: BP 123/85; PULSE 100; RESP 16; TEMP 36.9; O2SAT 98
[2020-11-13] MEDS: IBUPROFEN 600 MG TABLET PO (06:32)
[2020-11-13] MEDS: LEVOTHYROXINE SODIUM 50 MCG TABLET PO (06:32)
[2020-11-13] MEDS: HYDROcodone/acetaminophen (*CRX) 10-325 MG TABLET 1 TAB PO (06:33)
[2020-11-13 07:40] VITALS: BP 137/84; PULSE 108; RESP 20; TEMP 37.4; O2SAT 99
[2020-11-13] MEDS: DOCUSATE SODIUM 100 MG CAPSULE PO (08:32)
[2020-11-13] MEDS: MULTIVIT/MIN/PREN/FOL AC/IRON TABLET 1 TAB PO (08:32)
--- NOTE | 2020-11-13 08:36 | PM.OBPNVD ---
OB - PN: Subj Subjective Date/time seen: 11/13/20 08:36 Patient comments: no complaints and pain well controlled baby status: doing well OB - PN: Obj Data Labs CBC & Chem 7: 11/11/20 03:45 11/10/20 11:07 OB - PN A/P Plan day: 3 Plan: routine care, discharge home and other (unsure control) Time Spent With Patient Time: Total time spent is greater than 50% in coordination of care (as documented) at patient's floor/unit and/or counseling patient: Exam Narrative: Exam Narrative: inc c/d/i : Bimanual exam- vagina & uterus: other (Uterus firm, nt @U)
[2020-11-14 10:34] VITALS: BP 132/87; PULSE 102; RESP 18; TEMP 37.3; O2SAT 99
== END 2020-11-13 11:50 | disposition home or self-care (01) | DRG 786 ==
LOC: ANHLDR 11-10 13:39 → ANHOB2 11-10 16:52
PROVIDERS: Admitting Provider Obstetrics & Gynecology Gynecology; Visit Provider Obstetrics & Gynecology Gynecology
PROC: (CPT 59514; principal; 2020-11-10 13:00)
DX: O24.410 Gestational diabetes mellitus in pregnancy, diet controlled (principal); O41.1230 Chorioamnionitis, third trimester, not applicable or unspecified; Z37.0 Single live birth; Z3A.39 39 weeks gestation of pregnancy; E03.9 Hypothyroidism, unspecified; O99.344 Other mental disorders complicating childbirth; F41.9 Anxiety disorder, unspecified; O62.0 Primary inadequate contractions; O77.0 Labor and delivery complicated by meconium in amniotic fluid
CPT/HCPCS: 36415; 82565; 82948; 85025; 86592; 86850; 86900; 86901; 88304; 88305; 88307; A9270; J0131; J0290; J1580; J1885; J2210; J2274; J2590; J2795; J3480; J7030; J7120

== ENCOUNTER 2020-11-17 10:41 | Outpatient (RCR) | payer OTHER, SELFPAY ==
--- NOTE | 2020-11-17 12:15 | PC.NURSE ---
IN 09 OUT 1040 HISTORY: Pt. delivered at [facility] at 40 weeks. had complications after delivery. Mother had complications after delivery. Infant is now 7 days old. appears to be well cared for. has been seen by ICP as scheduled. Infant last seen by ICP at 1 week. Mother reports: Difficulties latching with first feeding. Mother was given a nipple shield, infant make good efforts to latch at times and others was sleepy and made no effort. Mother began supplementing within a few feedings. Mother would attempt to breast each feeding, then supplement and pump. Mother is pumping regularly with minimal amount of 1-3 mls per session. Mother is using a double electric stimulation pump. Infant is taking 2-4 oz per feeding of formula each feeding every 3-4 hours. Mother has a HX of infertility with 3 IUI attempts, then became on her own. Mother denies breast changes during the . Mother wishes: Increase milk supply Currently at 8 wets per day and 4-6 brown pasty stools per day. weight: 9#5 Discharge weight: 8#14 Last Weight: 9# Pre feeding weight: 4127 Post feeding weight: 4127 OBSERVATION: Assisted with to breast reviewed pillow support and keeping up not bending down to put breast into infant's mouth. Reviewed positioning/alignment in cross cradle, holding breast in U and asymmetrical latch on. was unable to latch correctly directly to breast. With shield in place, would latch and become very fussy pulling back and crying. Infant given 10 mls of formula then put to breast. Infant nursed eagerly, with steady draws and an occasional swallow noted for about 30 seconds to 1 minute. Infant would pull back and and fuss, repeating bottle infant would nurse for short bursts. Reviewed signs of a correct latch, effective nursing and suck swallow ratio. was able to maintain latch for several seconds without discomfort to mother. Discussed is used a fast and heavy milk flow and is not satisfied if he does not receive it. Reviewed mother's HX and discussed this may impact milk supply. Discussed late onset of milk is by day 10-12 and the importance of regular stimulation. Mother feels she is pumping adequately and is using a stimulation pump. Discussed options at this time, mother would like to continue for a few more days to see if she will get a better supply. Plan is to put to breast each feeding using the shield for 10 minutes, then FOB will bottle feed and mother will pump 15 minutes. Suggested a few minutes of warm compresses, massage and self expression before pumping. Mother will call with further questions or concerns. Follow up phone call scheduled for Friday
--- NOTE | 2020-11-20 13:45 | PC.NURSE ---
Pt called with update. Mother states she has continued to put to breasts most feeding using the nipple shield. Infant will nurse for 3-5 minutes with intermittent supplementation and then bottle 2-4 oz after. Mother has pumped after all feedings and continues to have 1-3mls per session. Discussed milk supply and probability of increasing to exclusive breastmilk feeding or increasing to more than current level. Mother states she will continue to follow above feeding plan for a few more days and then make a decision.
== END 2021-01-08 07:44 | disposition home or self-care (01) ==
LOC: ANHOBOP 10:41
PROVIDERS: Visit Provider Pediatrics
DX: Z39.1 Encounter for care and examination of lactating mother (principal)
CPT/HCPCS: 99212; G0463

== ENCOUNTER 2023-08-11 08:56 | Emergency (ER) | payer BC, SELFPAY ==
[2023-08-11 09:14] VITALS: BP 120/77; PULSE 80; RESP 16; TEMP 37; O2SAT 99
--- NOTE | 2023-08-11 09:27 | ED.URI ---
HPI - URI/Sore Throat General Chief Complaint: Upper Respiratory Infection Stated Complaint: sinus issue Time Seen by Provider: 08/11/23 09:28 Source: patient and RN notes reviewed Mode of arrival: ambulatory Limitations: no limitations History of Present Illness HPI Narrative: 43-year-old female presents with concern for 2 week history of nasal congestion, sinus pain, green nasal drainage. She reports she has been taking Mucinex without relief. She reports productive cough. She denies fever. MD elicited complaint: cough and nasal congestion Related Data Allergies Allergy/AdvReac Type Severity Reaction Status Date / Time No Known Allergies Allergy Unknown Verified 08/11/23 09:18 Review of Systems Review of Systems: CONSTITUTIONAL: Reports malaise. Denies chills, sweats, or fever. EYES: Denies visual changes, redness, or discharge. ENT: Reports rhinorrhea, congestion, sinus pain. Did otalgia and sore throat. CARDIOVASCULAR: Denies chest pain, palpitations, or edema. RESPIRATORY: Reports cough. Denies dyspnea. GASTROINTESTINAL: Denies abdominal pain, nausea, vomiting, diarrhea SKIN: Denies rash or itching. MUSCULOSKELETAL: Denies myalgia. NEUROLOGIC: Denies headache. All systems reviewed & are unremarkable except as noted in HPI and below PMFSH Past Medical History Medical History (Updated 08/11/23 @ 09:32 by Nara Dickerson NP) Adult hypothyroidism Anxiety Gestational diabetes Hydrocephalus V-P shunt 1980 Migraine Urinary tract disease had bilateral urinary tract dilation as a child Surgical History Surgical History (Updated 11/09/20 @ 09:06 by Kerry Lawrence CRNA) W[employer]MI[employer]IC (ventriculoperitoneal) shunt status Family History Family History Father Family history of elevated blood lipids Pancreatitis Grandparent Hypertension Carcinoma of colon Cancer Renal failure Pacemaker Heart disease Diabetes mellitus Social History Social History Smoking status: Never smoker Alcohol intake: current Substance use: never Spiritual care concerns: No Comments At time of signature, agree with nursing past medical, surgical, social and family history. There is no relevant family history pertinent to the presenting complaint Exam Narrative: GENERAL: Well-appearing, well-nourished, and in no acute distress. HEAD: Normocephalic EYES: PERRLA, conjunctivae clear ENT: Nares clear, turbinates edematous and erythematous, green discharge. Mucous membranes moist. TM pearly butt with dull light reflex bilaterally; no tragal tenderness. Oropharynx not erythematous without lesions. Tonsils not enlarged and without exudate, no drooling, no hoarseness, no trismus, uvula midline. NECK: Supple. No lymphadenopathy CHEST: Clear to auscultation, breath sounds equal. No wheezing, rhonchi, rales, or stridor. No respiratory distress, speaks in full sentences. HEART: Regular rate and rhythm. No murmur heard. SKIN: Warm, dry, no rash. NEURO: Alert and oriented x3. PSYCH: Normal mood and affect Course Course Emergency Course: Patient is aware of diagnosis, understands and agrees to treatment plan. Anticipatory guidance given. Patient agrees to follow-up as directed and is aware of reasons to seek care at the emergency department. Portions of this record may have been created with voice recognition software Level of Care: Express Care Visit Vital Signs Vital signs: Vital Signs Temperature 98.6 F 08/11/23 09:14 Pulse Rate 80 08/11/23 09:14 Respiratory Rate 16 08/11/23 09:14 Blood Pressure 120/77 08/11/23 09:14 Pulse Oximetry 99 08/11/23 09:14 Oxygen Delivery Room Air 08/11/23 09:14 Temperature 98.6 F 08/11/23 09:14 Pulse Rate 80 08/11/23 09:14 Respiratory Rate 16 08/11/23 09:14 Blood Pressure 120/77 08/11/23 09:14 Pulse Oximetry 99 08/11/23 09:14
== END 2023-08-11 09:39 | disposition home or self-care (01) ==
PROVIDERS: Emergency Provider Nurse Practitioner
DX: J32.9 Chronic sinusitis, unspecified (principal); E03.9 Hypothyroidism, unspecified
CPT/HCPCS: 99213; G0463

== ENCOUNTER 2023-11-28 13:29 | Emergency (ER) | payer BC, SELFPAY ==
--- NOTE | 2023-11-28 13:32 | ED.FEMALEGU ---
HPI - Female Genitourinary General Chief complaint: Urogenital-Female Stated complaint: UTI Time Seen by Provider: 11/28/23 14:01 Source: patient and RN notes reviewed Mode of arrival: ambulatory Limitations: no limitations History of Present Illness HPI Narrative: 43-year-old female presents with concern for for 5 day history of frequency, urgency, dysuria, bladder pressure and spasms. She reports lower back pain. She denies fever, body aches, sweats. Reports chills. Denies nausea or vomiting MD elicited complaint: UTI Related Data Allergies Allergy/AdvReac Type Severity Reaction Status Date / Time No Known Allergies Allergy Unknown Verified 11/28/23 13:34 Review of Systems Review of Systems: CONSTITUTIONAL: Denies malaise, chills, sweats, or fever. CARDIOVASCULAR: Denies chest pain, palpitations, or edema. RESPIRATORY: Denies cough or dyspnea. GASTROINTESTINAL: Denies abdominal pain, nausea, vomiting, diarrhea GENITOURINARY: Reports dysuria, frequency, urgency, suprapubic pressure. Denies hematuria. SKIN: Denies rash or itching. MUSCULOSKELETAL: Reports back pain. Denies myalgia. All systems reviewed & are unremarkable except as noted in HPI and below PMFSH Past Medical History Medical History (Updated 11/28/23 @ 14:10 by Nara Dickerson NP) Adult hypothyroidism Anxiety Gestational diabetes Hydrocephalus V-P shunt 1980 Migraine Urinary tract disease had bilateral urinary tract dilation as a child Surgical History Surgical History (Updated 11/09/20 @ 09:06 by Kerry Lawrence CRNA) OPAL POLISHER (ventriculoperitoneal) shunt status Family History Family History Father Family history of elevated blood lipids Pancreatitis Grandparent Hypertension Carcinoma of colon Cancer Renal failure Pacemaker Heart disease Diabetes mellitus Social History Social History Smoking status: Never smoker Alcohol intake: current Substance use: never Spiritual care concerns: No Comments At time of signature, agree with nursing past medical, surgical, social and family history. There is no relevant family history pertinent to the presenting complaint Exam Narrative: GENERAL: Well-appearing, well-nourished, and in no acute distress. HEAD: Normocephalic. EYES: PERRLA, conjunctivae clear. NECK: Supple. No lymphadenopathy CHEST: Clear to auscultation. No respiratory distress. HEART: Regular rate and rhythm. ABDOMEN: Soft, nontender upon palpation, nondistended, normal active bowel sounds, no palpable or pulsatile masses, no guarding. No CVA tenderness SKIN: Warm, dry, no rash. NEURO: Alert and oriented x3. PSYCH: Normal mood and affect Course Course Emergency Course: Patient is aware of diagnosis, understands and agrees to treatment plan. Anticipatory guidance given. Patient agrees to follow-up as directed and is aware of reasons to seek care at the emergency department. Portions of this record may have been created with voice recognition software Level of Care: Express Care Visit Vital Signs Vital signs: Reviewed. MDM - Female Genitourinary MDM Narrative Medical decision making narrative: Exam findings and UA show no acute concerns or changes; patient is non-toxic appearing and is in no distress. Patient is appropriate for outpatient treatment and follow-up. Differential Diagnosis Differential diagnosis: Likely urinary tract infection and cystitis Critical Care Time Critical Care Time Critical Care Time: No Discharge Plan Discharge Clinical Impression: Urinary tract infection Patient Disposition: Home, Self-Care Condition: Stable Instructions: Antibiotic Form, Urinary Tract Infection in Women (ED) Additional Instructions: We will send a urine culture to the lab; if the culture identifies an organism that the prescribed antibiotic will not treat,
[2023-11-28 13:41] VITALS: BP 122/70; PULSE 104; RESP 20; TEMP 37.4; O2SAT 100
== END 2023-11-28 14:15 | disposition home or self-care (01) ==
PROVIDERS: Emergency Provider Nurse Practitioner
DX: N39.0 Urinary tract infection, site not specified (principal); E03.9 Hypothyroidism, unspecified; G91.9 Hydrocephalus, unspecified; Z98.2 Presence of cerebrospinal fluid drainage device
CPT/HCPCS: 81003; 87086; 87088; 99213; G0463